=== PATIENT | female | born 1980 | race Caucasian/White ===

== ENCOUNTER 2018-08-11 20:08 | Emergency (ER) | payer OTHER, SELFPAY ==
[2018-08-11 20:10] VITALS: BP 116/68; PULSE 77; RESP 18; TEMP 36.6; O2SAT 98; BMI 26.3
--- NOTE | 2018-08-11 20:30 | ED.DCSUM_ITS ---
- ER Visit Summary Date of Service: 08/11/18 Chief Complaint: Right knee pain History of Present Illness: The patient is a 38 F with right knee pain that may or may not be traumatic. She does walk a lot at work. She denies any other trauma. This is been gone for a few days, she has been favoring that leg and putting pressure on her toes and now her medial aspect of the ankle is hurting. No calf tenderness no edema. Physical Examination: Otherwise normal exam, most of her tenderness is in the patellar tendon region near the insertion in the tibial tuberosity. She has no tenderness over patella. She has no laxity on anterior posterior medial or lateral stressors. She has no effusion. She has slight tenderness over the medial malleolus but no laxity. Emergency Department Course and Treatment: Patient has patellar tendinitis, with following compensation injury to her ankle. She will likely need physical therapy she was told to see her PCP, she will take anti-inflammatories at home. She was reassured. Discharge stable condition Impression: [Patellar tendinitis] This note was generated with [employer] dictation software. It may contain incorrect words, spelling, and punctuation that were not noted in review of the chart prior to signing ED Disposition - Plan for ED Patient: Disposition: Home or Assisted Living Referrals: Pawan Mojica [Primary Care Provider] - 2 Days Additional Instructions: Likely have patellar tendinitis. Call Dr. Siddiqui for appointment you may need physical therapy.
== END 2018-08-11 20:49 | disposition home or self-care (01) ==
LOC: ED 20:42
PROVIDERS: Emergency Provider Emergency Medicine; Family Provider Family Medicine
DX: M76.51 Patellar tendinitis, right knee (principal)
CPT/HCPCS: 99282

== ENCOUNTER 2024-04-09 10:32 | Emergency (ER) | payer OTHER, MEDICAID, SELFPAY ==
[2024-04-09 10:34] VITALS: BP 138/88; PULSE 73; RESP 16; TEMP 36.7; O2SAT 97; BMI 20.2
[2024-04-09 11:23] LABS: Erythrocyte Sedimentation Rate < 1 mm/hr (0-30)
[2024-04-09 11:26] LABS: Absolute Lymphocyte Count 2.93 X10^3/uL (0.83-4.51); Absolute Neutrophil Count 5.4 X10^3/uL (2.0-7.7); Basophil# 0.03 X10^3/uL; Basophil% 0.3 % (0-1); Eosinophil# 0.06 X10^3/uL; Eosinophils% 0.7 % (0-5); Hemoglobin 14.9 g/dL (12.0-15.0); Lymphocyte # 2.93 X10^3/ul (0.83-4.51); Mean Corp Hgb Conc 34.7 g/dL (32-36); Mean Corpuscular Hgb 33.8 pg (27.0-32.0); Mean Corpuscular Volume 97.5 fL (81-99); Mean Platelet Vol. 9.1 fl (6.2-12.0); Monocyte# 0.45 X10^3/uL; Monocyte% 5.1 % (0-10); NRBC Flagged by Analyzer 0 % (0-5); Neutrophil # 5.39 X10^3/uL (2.7-7.7); Neutrophil % 60.7 % (47-70); Platelet Count 278 K/mm3 (150-450); RBC Distribution Width CV 12.1 % (11.6-14.6); RBC Distribution Width SD 43.7 fl (35.1-43.9); Red Blood Count 4.41 M/mm3 (4.2-5.4); White Blood Count 8.9 K/mm3 (4.4-11.0)
[2024-04-09 11:28] LABS: Anion Gap 4 (5-15); BUN 10 mg/dL (7-18); CRP < 2.90 mg/L (0.0-3.0); Calcium,Total 9.1 mg/dL (8.5-10.1); Chloride 110 mmol/L (98-107); Creatinine, Serum 0.83 mg/dL (0.55-1.02); EST Glomerular Filtration Rate 79 mL/min (>60); Est Glom Filt Rate - Afr Amer 96 mL/min (>60); Estimated Creatinine Clearance 66.63 ml/min; Glucose 111 mg/dL (74-106); Potassium 3.8 mmol/L (3.5-5.1); Sodium Level 140 mmol/L (136-145)
[2024-04-09 11:33] VITALS: BP 133/84; PULSE 57; RESP 16
[2024-04-09 12:00] VITALS: BP 128/70; PULSE 57; RESP 16
[2024-04-09 12:05] VITALS: BP 128/70; PULSE 57; RESP 16; TEMP 36.6; O2SAT 99
== END 2024-04-09 12:10 | disposition home or self-care (01) ==
PROVIDERS: Emergency Provider Emergency Medicine; PCP Internal Medicine; Visit Provider Emergency Medicine
DX: I73.00 Raynaud's syndrome without gangrene (principal); R55 Syncope and collapse; F17.210 Nicotine dependence, cigarettes, uncomplicated; R42 Dizziness and giddiness; R23.0 Cyanosis; Z79.899 Other long term (current) drug therapy
CPT/HCPCS: 80048; 84443; 85025; 85652; 86140; 93005; 93922; 99283; A4216